=== PATIENT | female | born 1970 | race Caucasian/White ===

== ENCOUNTER → 2017-08-08 | Outpatient (CLI) | payer BC | LOC: FIMAGING 16:49 | PROVIDERS: ATTEND Obstetrics & Gynecology | DX: Z09 Encounter for follow-up examination after completed treatment for conditions other than malignant neoplasm (principal) ==

== ENCOUNTER 2018-05-09 09:13 | Day surgery (SDC) | payer BC ==
--- NOTE | 2018-05-09 07:05 | GHP ---
DATE OF ADMISSION: 05/09/2018 CHIEF COMPLAINT: Right forefoot pain. HISTORY OF PRESENT ILLNESS: The patient is a 48-year-old with a history of progressive right forefoot pain and deformity. She is having difficulty with activity secondary to her symptoms. MEDICATIONS: Include Adderall, clonazepam, oxcarbazepine, Seroquel, and tramadol. ALLERGIES: She lists no drug allergies. SOCIAL HISTORY: Negative for tobacco use. PAST SURGICAL HISTORY: Positive for previous orthopedic surgery. PAST MEDICAL HISTORY: Positive for anxiety disorder, asthma, and depression. PHYSICAL EXAMINATION: GENERAL: The patient is alert and oriented x3, in no acute distress. HEENT: Head normocephalic. Pupils equal, round, reactive to light. Extraocular eye movements intact. NECK: Supple. No JVD or lymphadenopathy. CHEST: Clear to auscultation. HEART: Regular rate and rhythm. No murmurs or gallops. ABDOMEN: Soft, nontender, nondistended. GENITAL/RECTAL/BREASTS: Deferred. EXTREMITIES: Hypermobile hallux valgus with gastrocnemius contracture. ASSESSMENT: Hypermobile hallux valgus. PLAN: The patient is scheduled to undergo modified Lapidus procedure. /[id number]/MODL MTDD
[2018-05-09] MEDS ORDERED: LR 1,000 ML IV ONE (09:37)
[2018-05-09] MEDS ORDERED: LIDOCAINE 1% 2 ML INJ ID PRN (09:37)
[2018-05-09] MEDS ORDERED: LIDOCAINE 2% 5 ML SDV ONE (10:18)
[2018-05-09] MEDS ORDERED: ROPIVACAINE HCL 150 MG/30 ML INJ ONE (10:18)
[2018-05-09] MEDS ORDERED: DEXAMETHASONE 4 MG/ML VIAL ONE ×3 (10:23→11:38)
[2018-05-09] MEDS ORDERED: fentaNYL 100 MCG/2 ML INJ ONE ×3 (10:23→12:56)
[2018-05-09] MEDS ORDERED: ONDANSETRON 4 MG/2 ML VIAL ONE ×3 (10:23→11:35)
[2018-05-09] MEDS ORDERED: BUPIVACAINE 0.5% 30 ML SDV ONE (10:32)
[2018-05-09] MEDS ORDERED: PHENYLEPHRINE HCL 100 MCG/ML SYR ONE (10:38)
[2018-05-09] MEDS ORDERED: MIDAZOLAM 2 MG/2 ML VIAL IVP ONE (10:51)
[2018-05-09] MEDS ORDERED: oxyCODONE IR 5 MG TAB PO PRN (10:52)
[2018-05-09] MEDS ORDERED: ALBUTEROL 3 ML DEYVIAL IH PRN (10:52)
[2018-05-09] MEDS ORDERED: HYDROmorphONE/DILAUDID 2 MG/ML INJ IVP PRN (10:52)
[2018-05-09] MEDS ORDERED: ACETAMINOPHEN 500 MG TAB PO PRN (10:52)
[2018-05-09] MEDS ORDERED: ONDANSETRON 4 MG/2 ML VIAL IVP PRN (10:52)
[2018-05-09] MEDS ORDERED: NALOXONE HCL 0.4 MG/ML INJ IVP PRN (10:52)
[2018-05-09] MEDS ORDERED: DEXAMETHASONE 4 MG/ML VIAL IVP PRN (10:52)
[2018-05-09] MEDS ORDERED: MIDAZOLAM 2 MG/2 ML VIAL ONE (11:00)
[2018-05-09] MEDS ORDERED: SCOPOLAMINE HYDROBROMIDE 1 MG/3 DAYS PATCH TD SCH (11:00)
[2018-05-09] MEDS ORDERED: ceFAZolin 2 GM/DEXTROSE 100 ML IV ONE (11:03)
[2018-05-09] MEDS ORDERED: CEFAZOLIN 2 GM/DEXTROSE/100 ML BAG IV ONE (11:03)
--- NOTE | 2018-05-09 11:05 | POSTOPPROG ---
Post Op Note Date of Operation: 05/09/18 Surgeon: Khris Schmitt Anesthesia: LMA Pre-op Diagnosis: R hypermolbile hallux valgus/bunion Post-op Diagnosis: same Procedure: R Lapidus, intercuneiform arthrodesis Inf/Abcess present in the surg proc area at time of surgery?: No EBL: Minimal
[2018-05-09] MEDS ORDERED: PROPOFOL 200 MG/20 ML VIAL ONE (11:19)
[2018-05-09] MEDS ORDERED: METOCLOPRAMIDE 10 MG/2 ML VIAL ONE (11:38)
[2018-05-09] MEDS ORDERED: RANITIDINE 50 MG/2 ML VIAL ONE (11:38)
--- NOTE | 2018-05-09 12:42 | POSTANESTH ---
Post Anesthetic Evaluation Cardiovascular Status: Normal, Stable Respiratory Status: Normal, Stable Level of Consciousness/Mental Status: Can Participate in Eval, Alert and Oriented Pain Control: Adequate, Prn Tx Ordered Nausea/Vomiting Control: Adequate, Prn Tx Ordered Complications Possibly Related to Anesthesia: None Noted
--- NOTE | 2018-05-09 12:42 | PDANEPAE ---
ANE History of Present Illness valeriy DODD Past Medical History - Cardiovascular History Hx Hypertension: No Hx Arrhythmias: No Hx Chest Pain: No Hx Coronary Artery / Peripheral Vascular Disease: No Hx CHF / Valvular Disease: No Hx Palpitations: No - Pulmonary History Hx COPD: No Hx Asthma/Reactive Airway Disease: Yes Hx Recent Upper Respiratory Infection: No Hx Oxygen in Use at Home: No Hx Sleep Apnea: No Sleep Apnea Screening Result - Last Documented: Negative Pulmonary History Comment: INHALER - Neurologic History Hx Cerebrovascular Accident: No Hx Seizures: No Hx Dementia: No - Endocrine History Hx Diabetes: No - Renal History Hx Renal Disorders: No - Liver History Hx Hepatic Disorders: No - Neurological & Psychiatric Hx Hx Neurological and Psychiatric Disorders: Yes Neurological / Psychiatric History Comment: ANXIETY/PANIC DISORDER - SEES PHYCHIATRIST - Cancer History Hx Cancer: No - Congenital Disorder History Hx Congenital Disorders: No - GI History Hx Gastrointestinal Disorders: No - Other Health History Other Health History: RECENT LOW SODIUM LEVEL - PT TO BRING COPY OF RECENT LABS - Chronic Pain History Chronic Pain: Yes (R FOOT) - Surgical History Prior Surgeries: HYSTERECTOMY 2018. CERVICAL FUSION X2 C4-C7. APPENDECTOMY. KNEE SCOPE L ANE Review of Systems Review of Systems: - Exercise capacity METS (RN): 5 METS ANE Patient History - Allergies Allergies/Adverse Reactions: No Known Allergies Allergy (Unverified 05/08/18 14:45) - Home Medications Home Medications: Adderall 10 MG (*) 05/08/18 [Last Taken 05/08/18] Albuterol 05/08/18 [Last Taken 2 Days Ago ~05/07/18] Estradiol 05/08/18 [Last Taken Unknown] Klonopin 05/08/18 [Last Taken 05/09/18] Oxycarbonate 05/08/18 [Last Taken 05/09/18] Seroquel 05/08/18 [Last Taken 05/09/18] - NPO status NPO Since - Liquids (Date): 05/09/18 NPO Since - Liquids (Time): 06:00 NPO Since - Solids (Date): 05/08/18 NPO Since - Solids (Time): 11:30 - Smoking Hx Smoking Status: Never smoked - Family Anes Hx Family Hx Anesthesia Complications: NEG ANE Labs/Vital Signs - Vital Signs Blood Pressure: 119/85 Heart Rate: 73 Respiratory Rate: 16 O2 Sat (%): 99 Height: 167.64 cm Weight: 61.235 kg ANE Physical Exam - Airway Neck exam: FROM Mallampati Score: Class 2 Mouth exam: normal dental/mouth exam - Pulmonary Pulmonary: clear to auscultation - Cardiovascular Cardiovascular: regular rate and rhythym - ASA Status ASA Status: II ANE Anesthesia Plan Anesthesia Plan: GA with mask Regional Anesthesia: adductor canal FNB, popliteal SNB
[2018-05-09] MEDS: fentaNYL 100 MCG/2 ML INJ IVP PRN ×2 (12:55→13:30)
--- NOTE | 2018-05-09 13:37 | GOP ---
DATE OF OPERATION: 05/09/18 SURGEON: Khris Schmitt MD ANESTHESIA: General plus popliteal and saphenous nerve blocks performed by the anesthesiologist at my request for postoperative pain management. PREOPERATIVE DIAGNOSIS: 1. Right hypermobile hallux valgus/symptomatic bunion. 2. Right inner cuneiform instability. POSTOPERATIVE DIAGNOSIS: 1. Right hypermobile hallux valgus/symptomatic bunion. 2. Right inner cuneiform instability. PROCEDURE PERFORMED: 1. Right modified Lapidus procedure (1st tarsometatarsal arthrodesis, medial capsule tightening, bunionectomy, and lateral capsular release). 2. Right inner cuneiform arthrodesis. 3. Intraoperative use of fluoroscopy. 4. Local bone graft. FINDINGS: ESTIMATED BLOOD LOSS: Minimal. INDICATIONS: The patient is a 48-year-old with history of progressive medial forefoot pain and deformity. Clinically and radiographically she was noted to have hypermobile hallux valgus, symptomatic bunion. Based on her persistence of symptoms refractory to nonoperative treatment, she was interested in pursuing operative care. From an operative standpoint, a modified Lapidus procedure was recommended. Patient acknowledged she understood the potential risks of the operation including, but not limited to, bleeding, infection, neurovascular damage leading to loss of limb or limb function, malunion, nonunion, need for hardware removal, pain or functional limitations despite operative treatment, and anesthetic risks. She acknowledged she understood the potential risks of the planned procedure and postoperative plan well and had all questions answered prior to surgery. She gave her consent for the operative procedure. DESCRIPTION OF PROCEDURE: The patient was brought to the operating after IV antibiotics were administered. Popliteal and saphenous nerve blocks were performed by the anesthesiologist at my request for postoperative pain management in preop holding. She was placed in supine position where general anesthetic was administered. Tourniquet was placed on her right calf, bump underneath the right hip and shoulder, and her right lower extremity was prepped and draped in standard sterile fashion. After marking the incision and Rudy wrap exsanguination, tourniquet was inflated to 250. A longitudinal incision was made along the dorsal aspect of the medial midfoot. Skin and subcutaneous tissue were sharply incised. Sharp dissection was carried adjacent to the extensor hallucis longus, exposing the 1st tarsometatarsal joint. The capsule was opened. Dissection was carried laterally, exposing the inner cuneiform and intermetatarsal joints. Care was taken to avoid damage to the neurovascular bundle. A chisel and rongeur were utilized to denude all articular cartilage at the aforementioned joints. In preparation for arthrodesis, subchondral bone was drilled multiple times with a 2.0 mm drill bit and further roughened with a chisel. A bur was then utilized to create a trough on the dorsal aspect of the 1st metatarsal and medial cuneiform for screw placement. A longitudinal incision was made along the medial aspect of the 1st MTP region. Skin and subcutaneous tissue were sharply incised. Sharp dissection was carried down to the joint capsule, taking care to avoid damage to the digital nerve. Full-thickness flaps were elevated off the capsule. Capsule was longitudinally incised in line with the skin incision and reflected plantarly and dorsally. Using a saw, the bony prominence on the medial aspect of the 1st metatarsal head was removed. A small incision was made in the 1st interdigital space. Skin and subcutaneous tissue were sharply incised. Sharp dissection was carried over to the lateral capsule. Lateral capsule was transversely incised. Scissors were utilized to release the sesamoid metatarsal ligaments both proximally and distally. The 1st metatarsal was then optimally reduced correcting for angular and rotational alignment and secured with 3.5 mm cortical screws placed in lag fashion from the dorsal aspect of the 1st metatarsal in the plantar aspect of the medial cuneiform, dorsal aspect of the medial cuneiform in the plantar aspect of the 1st metatarsal, medial aspect of the 1st metatarsal into the base of the 2nd metatarsal, and medial aspect of the medial cuneiform into the middle cuneiform. Fluoroscopic views confirmed favorable hardware and arthrodesis positions. The bur was then utilized to create a trough on the dorsal aspect of the 1st metatarsal and inner cuneiform joints. Bone graft harvested from drill bit reamings was impacted into this trough as a "stress strain relieving bone graft. " Capsulorrhaphy was then performed. A small V-shaped wedge was taken from the plantar capsule of the 1st MTP level. The capsule was tightened with 0 PDS suture. Attention was directed towards closure. Deep tissue was closed with 2-0 Vicryl suture in interrupted fashion, subcutaneous tissue closed with 3-0 Vicryl suture in interrupted fashion, skin closed with 4-0 nylon interrupted sutures. The wounds were dressed with sterile Adaptic, 4 x 4, and Webril, and leg was placed in a below-knee splint. The patient tolerated the procedure well and was taken to the recovery room extubated in stable condition postoperatively. All sponge, needle, and instrument counts were reported as being correct. DRAINS: None. COMPLICATIONS: None. PLAN: The patient will be discharged home nonweightbearing on her operative extremity. /[id number]/MODL MTDD
[2018-05-09 14:34] VITALS: BP 105/65
[2018-05-10] MEDS ORDERED: PATCH REMOVAL 1 EA PATCH TD ONE (10:52)
--- NOTE | 2018-05-11 22:24 | GOP ---
DATE OF OPERATION: 05/09/2018 SURGEON: Khris Schmitt MD ANESTHESIA: General plus popliteal and saphenous nerve blocks performed by the anesthesiologist at m y request for postoperative pain management. PREOPERATIVE DIAGNOSIS: 1. Right hypermobile hallux valgus/symptomatic bunion. 2. Right inner cuneiform instability. POSTOPERATIVE DIAGNOSIS: 1. Right hypermobile hallux valgus/symptomatic bunion. 2. Right inner cuneiform instability. PROCEDURE PERFORMED: 1. Right modified Lapidus procedure. 2. Right inner cuneiform arthrodesis. 3. Local bone graft. 4. Intraoperative use of fluoroscopy. FINDINGS: ESTIMATED BLOOD LOSS: Minimal. INDICATIONS: The patient is a 48-year-old with history of progressive medial forefoot pain and defor mity. Clinically and radiographically she was noted to have a hypermobile hallux valgus and symptoma tic bunion. Based on her persistence of symptoms refractory to nonoperative treatment, she is intere sted in pursuing operative treatment. From an operative standpoint, modified Lapidus procedure and c uneiform arthrodesis were recommended. Patient acknowledged she understood the potential risks of th e operation, including but not limited to bleeding, infection, neurovascular damage including loss of limb function, malunion, nonunion, need for hardware removal, persistent pain, limitations or deform ity despite operative treatment, and anesthetic risks. She acknowledged she understood the potential risks, planned procedure, and postoperative plan well and had all questions answered prior to surger y. She gave her consent to the operative procedure. DESCRIPTION OF PROCEDURE: The patient was brought to the operating room after IV antibiotics were ad ministered. She was placed in a supine position where general anesthetic was administered. Prior to coming to the operating room, popliteal and saphenous nerve blocks were performed by the anesthesiol carmen at my request for postoperative pain management. Tourniquet was placed on the right thigh, bum ps underneath the right hip and shoulder, and the right lower extremity was prepped and draped in sta ndard sterile fashion. After marking the incision and Rudy wrap exsanguination, tourniquet was inflat ed to 250. A longitudinal incision was made along the dorsal medial aspect of the midfoot. Skin and subcutaneous tissue were sharply incised. Sharp dissection was carried adjacent to the extensor krishna lucis longus tendon, exposing the 1st tarsometatarsal joint. The tarsometatarsal joint was opened. Dissection was then carried laterally exposing the inner metatarsal base and inner cuneiform joint. Instability of cuneiform joint was confirmed prior to "taking down" the capsule. Care was taken to a void damage to the neurovascular bundle. Utilizing a chisel and rongeur all articular surface of the aforementioned joints was denuded. In preparation for arthrodesis subchondral bone was drilled mult iple times with a 2.0 mm drill bit and further roughened with a chisel. Using a 4 mm bur a trough wa s created on the dorsal aspect of the 1st metatarsal medial cuneiform for future screw placement. Incision was then made along the medial aspect of the 1st MTP joint. Skin and subcutaneous tissue we re sharply incised. Sharp dissection was carried down to the capsule level where full-thickness flap s were developed off the capsule, taking care to avoid damage to the digital nerve branch. The capsu le was longitudinally incised and reflected dorsally and plantarly. The bony prominence on the media l aspect of the 1st metatarsal head was removed with a saw. A small incision was made in the 1st int erdigital space. Dissection was carried to the lateral aspect of the 1st MTP joint. Capsule was rel eased and sesamoid metatarsal ligaments released both proximally and distally with tenotomy scissors. This allowed for favorable correction of the great toe with reduction of the 1st metatarsal. First metatarsal was optimally reduced correcting for angular and rotational deformities. With the 1st me tatarsal held in a properly reduced position, 3.5 mm cortical screws were placed in lag fashion from the dorsal aspect of the 1st metatarsal in the plantar aspect of the medial cuneiform, dorsal aspect of the medial cuneiform into the plantar aspect of the 1st metatarsal, and medial aspect of the 1st m etatarsal into the 2nd metatarsal base and medial aspect of the medial cuneiform into the middle cune iform. Fluoroscopic views confirmed favorable hardware and arthrodesis positions. The bur was then utilized to create a trough in the dorsal aspect of the 1st TMT and intercuneiform j oints. Bone graft harvested from drill bit reamings was impacted into this as a "stress strain relie ving bone graft." Capsulorrhaphy was then performed. A V-shaped portion of the plantar capsule of the MTP joint was re moved (very limited amount). The capsule was then tightened with 0 PDS suture. Attention was direct ed toward closure. The deep tissue was closed with 2-0 Vicryl suture in interrupted fashion. Subcut aneous tissue closed with 3-0 Vicryl suture in interrupted fashion. Skin closed with 4-0 nylon inter rupted sutures. 0.5% Marcaine without epinephrine was injected in the wound sites. The wounds were dressed with sterile Adaptic, 4 x 4, and Webril, and leg was placed in a below-knee splint. The sonja ent tolerated the procedure well and was taken to the recovery room extubated in stable condition pos toperatively. All sponge, needle, and instrument counts were reported as being correct. DRAINS: None. COMPLICATIONS: None. PLAN: Patient will be discharged home nonweightbearing on her operative extremity. /[id number]/MODL
[2018-05-12] MEDS ORDERED: PATCH REMOVAL 1 EA PATCH TD SCH (10:52)
== END 2018-05-09 14:50 | disposition home or self-care (01) ==
LOC: FSGY 09:13
PROVIDERS: ATTEND Orthopaedic Surgery Foot and Ankle Surgery
DX: M20.11 Hallux valgus (acquired), right foot (principal); M21.611 Bunion of right foot; F41.8 Other specified anxiety disorders; J45.909 Unspecified asthma, uncomplicated
CPT/HCPCS: C1713; J0690; J1100; J2250; J2370; J2405; J2704; J2765; J2780; J2795; J3010